=== PATIENT | male | born 1995 | race Hispanic/Latino ===

== ENCOUNTER 2017-12-16 13:45 | Emergency (ER) | payer OTHER ==
[2017-12-16] MEDS ORDERED: TETANUS/DIPHTHERIA TOXOID [ADULT] 0.5 ML VIAL IM ONE (14:13)
[2017-12-16] MEDS ORDERED: AMOXICILLIN/POTASSIUM CLAV 875-125 TABLET PO ONE (14:28)
== END 2017-12-16 15:09 | disposition home or self-care (01) ==
LOC: EDH 13:45
DX: S81.832A Puncture wound without foreign body, left lower leg, initial encounter (principal); S41.132A Puncture wound without foreign body of left upper arm, initial encounter; S41.131A Puncture wound without foreign body of right upper arm, initial encounter; Z72.0 Tobacco use; W54.0XXA Bitten by dog, initial encounter; Y93.89 Activity, other specified; Y92.89 Other specified places as the place of occurrence of the external cause; Y99.8 Other external cause status
CPT/HCPCS: 90471; 90714